=== PATIENT | female | born 2000 | race Caucasian/White ===

== ENCOUNTER 2020-08-12 17:00 | Emergency (ER) | payer OTHER ==
[~2020-08-12] VITALS: Ht 175.3 cm; Wt 81.8 kg
[2020-08-12 17:07] VITALS: BP 134/61; TEMP 98.4
[2020-08-12] MEDS ORDERED: AMOXICILLIN 8751 TAB PO (18:04)
[2020-08-12 18:11] VITALS: PULSE 105
== END 2020-08-12 18:11 | disposition home or self-care (01) ==
LOC: COL.ER 17:00
DX: T16.2XXA Foreign body in left ear, initial encounter (principal); H60.392 Other infective otitis externa, left ear; W31.9XXA Contact with unspecified machinery, initial encounter